=== PATIENT | male | born 1975 | race Two or more races ===

== ENCOUNTER 2025-01-06 01:24 | Emergency (ER) | payer OTHER ==
[~2025-01-06] VITALS: Ht 170.2 cm; Wt 110.9 kg
[2025-01-06] MEDS: SODIUM CHLORIDE 0.9% 1,000 ML IV ONE ×3 (02:15→05:49)
--- NOTE | 2025-01-06 02:15 | ED.PDOC ---
History of Present Illness HPI Comments 49-year-old male came to ER via EMS for alcohol intoxication. Patient was at a green party wherein he had too much to alcohol to drink. Noted to be intoxicated with episodes of nausea and vomiting. Blood sugar was 434. He does have history of diabetes but he is not taking any medications for it. Chief Complaint: ETOH Time Seen by MD: 02:13 Reviewed Notes: Apartment Maintenance Worker Notes Allergies: Coded Allergies: NO KNOWN ALLERGIES (Unverified , 01/06/25) Information Source: Patient, Emergency Med Personnel Mode of Arrival: EMS Severity: Moderate Timing: Hours Duration: Since onset Review of Systems REVIEW OF SYSTEMS: No fever, no chills, or fatigue (+) intoxicated with alcohol HEENT: No sore throat, no earache, no congestion, no neck pain. Cardiac: No chest pain. No palpitations. Lungs: No shortness of breath, no cough. GI: (+) nausea, (+) vomiting, no diarrhea, no constipation, no abdominal pain : No dysuria, frequency, or urgency. No hematuria. Musculoskeletal: No joint pain , no joint swelling, no extremity edema. Skin: No rash, no itching. Neuro: No headache, no dizziness, no weakness Vital Signs Vital Signs Date Time Temp Pulse Resp B/P (MAP) Pulse Ox O2 Delivery O2 Flow Rate FiO2 01/06/25 04:50 97.8 93 16 120/81 (94) 93 97.8 Physical Exam General: Patient is sleeping however easily aroused. Vomitus noted on his shirt and pants. HEENT: The head is normocephalic and atraumatic. Conjunctivae are clear without exudates or hemorrhage. Sclera is non-icteric. Neck: Normal range of motion. No JVD. Cardiac: Regular rate Respiratory: No signs of respiratory distress. No Stridor. Extremities: Upper and lower extremities are atraumatic in appearance without deformity. Neurological: The patient is awake, alert and oriented to person, place, he appears intoxicated. There is no facial asymmetry. Past Medical History PAST MEDICAL HISTORY: DM Surgical History: Denies all surgeries Family History Family History: Reviewed,noncontributory to illness Social History Smoker: Non-Smoker Alcohol: Occasionally Drugs: Denies Drug Use Lives In: Home Was a procedure done? Was a procedure done?: No Differential Dx Considerations may include: Alcohol intoxication, hyperglycemia, medication noncompliance, diabetic ketoacidosis X-Ray, Labs, Meds, VS Vital Signs Date Time Temp Pulse Resp B/P (MAP) Pulse Ox O2 Delivery O2 Flow Rate FiO2 01/06/25 04:50 97.8 93 16 120/81 (94) 93 97.8 01/06/25 01:29 98.2 89 18 128/85 (99) 96 Lab Test 01/06/25 04:57 01/06/25 04:48 01/06/25 02:50 01/06/25 02:42 Range/Units Lactic Acid Level Pending 6.0 *H 0.4-2.0 mmol/L POC Glucose 321 H 70-106 mg/dl Urine Color Light-yellow Yellow Urine Clarity Clear Clear Urine pH 5.0 5.0-9.0 Urine Specific Schulter 1.028 1.001-1.035 Urine Protein Negative Negative Urine Ketones 1+ H Negative Urine Blood Negative Negative /uL Urine Nitrite Negative Negative Urine Bilirubin Negative Negative Urine Urobilinogen Normal Negative mg/dL Urine Leukocyte Esterase Negative Negative /uL Urine RBC <1 0 - 3 /hpf Urine Microscopic WBC 0-3 /HPF Urine Squamous Epithelial Cells Few <5 /hpf Urine Bacteria None seen None Seen /hpf Urine Glucose 4+ H Normal mg/dL Urine Opiates Screen Neg NEGATIVE Urine Fentanyl Screen Neg NEGATIVE Urine Barbiturates Screen Neg NEGATIVE Urine Phencyclidine Screen Neg NEGATIVE Urine Amphetamines Screen Neg NEGATIVE Urine Benzodiazepines Screen Neg NEGATIVE Urine Cocaine Screen Neg NEGATIVE Urine Cannabinoids Screen Neg NEGATIVE White Blood Count 10.9 H 4.4-10.8 10^3/uL Red Blood Count 5.11 4.5-5.90 10^6/uL Hemoglobin 16.2 13.5-17.5 g/dL Hematocrit 47.3 41.0-53.0 % Mean Corpuscular Volume 92.6 80.0-100.0 fL Mean Corpuscular Hemoglobin 31.8 28.0-32.0 pg Mean Corpuscular Hemoglobin Concent 34.3 32.0-36.0 g/dL Red Cell Distribution Width 13.5 11.8-14.3 % Platelet Count 259 140-450 10^3/uL Mean Platelet Volume 7.8 6.9-10.8 fL Neutrophils (%) (Auto) 37.0-80.0 % Lymphocytes (%) (Auto) 10.0-50.0 % Monocytes (%) (Auto) 0.0-12.0 % Basophils (%) (Auto) 0.0-2.0 % Neutrophils # (Auto) 1.6-8.6 10 ^3/uL Lymphocytes # (Auto) 0.4-5.4 10 ^3/uL Monocytes # (Auto) 0-1.3 10 ^3/uL Differential Total Cells Counted 100.0 100 Neutrophils % (Manual) 64 37.0-80.0 Band Neutrophils % (Manual) 10 Lymphocytes % (Manual) 22 10.0-50.0 Monocytes % (Manual) 4 0-12 Eosinophils % (Manual) 0 0-7 Basophils % (Manual) 0 0.0-2.0 Metamyelocytes % (manual) 0 Myelocytes % (Manual) 0 Promyelocytes % (Manual) 0 Blast Cells % (Manual) 0 Reactive Lymphocytes 0 Platelet Estimate Adequate Sodium Level 136 136-145 mmol/L Potassium Level 3.6 3.5-5.1 mmol/L Chloride Level 97 L 98-107 mmol/L Carbon Dioxide Level 18 L 20-31 mmol/L Anion Gap 21 H 5-15 Blood Urea Nitrogen 11 9-23 mg/dL Creatinine 1.07 0.700-1.30 mg/dL Glomerular Filtration Rate Calc 86 >90 mL/min BUN/Creatinine Ratio 10.3 10.0-20.0 Serum Glucose 414 *H 74-106 mg/dL Calcium Level 10.3 8.7-10.4 mg/dL Magnesium Level 2.3 1.6-2.6 mg/dL Total Bilirubin 0.2 0.2-1.0 mg/dL Aspartate Amino Transferase (AST) 16 13-40 U/L Alanine Aminotransferase (ALT) 19 7-40 U/L Alkaline Phosphatase 112 46-116 U/L Total Protein 8.1 5.7-8.2 g/dL Albumin 5.3 H 3.2-4.8 g/dL Beta-Hydroxybutyric Acid 0.533 H < 0.4 mmol/L Plasma/Serum Blood Alcohol 137.7 H <10 mg/dL Test 01/06/25 02:15 Range/Units Blood Gas Specimen Type Arterial Blood Gas Sample Site Right radial Blood Gas Patient Temperature 37.0 Arterial Blood Date Drawn [id number] Arterial Blood pH 7.374 7.350-7.450 Arterial Blood Partial Pressure CO2 28.1 L 35.0-48.0 mmHg Arterial Blood Partial Pressure O2 86.1 83.0-108.0 mmHg Arterial Blood HCO3 16.0 L 21.0-28.0 mmol/L Arterial Blood Oxygen Saturation 95.3 94.0-98.0 % Arterial Blood Base Excess -7.4 L -2.0-3.0 mmol/L Arterial Blood Oxyhemoglobin 93.9 L 94.0-98.0 % Arterial Blood Carboxyhemoglobin 1.0 0.5-1.5 % Arterial Blood Methemoglobin 0.5 0.0-1.5 % Irving Test Yes Blood Gas Total Hemoglobin 16.00 13.5-17.5 g/dL Blood Gas Modality Room air FiO2 % 21.0 Current Medications Medications (Trade) Dose Ordered Sig/Matthew Route Start Time Stop Time Status Last Admin Sodium Chloride 1,000 ml @ 1,000 mls/hr Q1H ONCE IV 01/06/25 02:15 01/06/25 03:14 DC 01/06/25 02:15 Sodium Chloride 1,000 ml @ 1,000 mls/hr Q1H ONCE IV 01/06/25 04:15 01/06/25 05:14 DC 01/06/25 04:12 Ondansetron HCl (Zofran) 4 mg ONCE ONCE IV 01/06/25 04:15 01/06/25 04:16 DC 01/06/25 04:14 Time of 1ST Reevaluation: 02:07 Reevaluation 1ST: Unchanged Patient Education/Counseling: Diagnosis, Treatment, Other (Need for admission) Family Education/Counseling: No Family Present Departure 1 Departure Time of Disposition: 02:39 Impression: Primary Impression: Uncontrolled diabetes mellitus Additional Impressions: Alcohol intoxication DKA (diabetic ketoacidosis) Disposition: ADMITTED INPATIENT Condition: Stable Comments 49-year-old male who presenting with alcohol intoxication. Blood glucose was elevated. He was found to be in DKA. IV fluids and insulin initiated in the emergency department. Patient admitted for further treatment, evaluation and monitoring. Extensive evaluation was performed in attempt to identify or rule out: (See differential diagnosis section) The following tests were ordered, and results were reviewed by me: (See diag nostic results section) The following test were independently interpreted by me: N/A I reviewed and agreed with the following test results read by other providers: N/A I reviewed the following notes from the pt's past medical encounters: (None available at this time) Additional information was gathered from interviewing the following independent historians: N/A Discussion of management or test interpretation with external physician/other qualified health care provider: N/A Addressed one or more chronic illnesses with severe exacerbation, progression, or side effects of treatment: Diabetes, an acute or chronic illness that poses a threat to life or bodily function: DKA Decision regarding hospitalization or escalation of hospital level of care: Risk and benefits of admission for further treatment of patient's condition was considered. Due to patient's current clinical condition, high risk of decline and poor outcome if discharged and need for further inpatient management and monitoring, patient will be admitted to the hospital. Drug therapy requiring intensive monitoring for toxicity: IV insulin Parenteral controlled substances: N/A Decision regarding elective major surgery with identified patient or procedure risk factors: N/A Decision regarding emergency major surgery: N/A Decision not to resuscitate or to de-escalate care because of poor prognosis: N/A Diagnosis or treatment significantly limited by social determinants of health: N/A Critical Care Note Critical Care Time?: Yes (35 min-critical care time only) Critical care comment: DKA Due to a high probability of clinically significant, life threatening deterioration, the patient required my highest level of preparedness to intervene emergently and I personally spent this critical care time directly and personally managing the patient. This critical care time included obtaining a history; examining the patient; pulse oximetry; ordering and review of studies; arranging urgent treatment with development of a management plan; evaluation of patient's response to treatment; frequent reassessment; and, discussions with other providers. This critical care time was performed to assess and manage the high probability of imminent, life-threatening deterioration that could result in multi-organ failure. It was exclusive of separately billable procedures and treating other p atients and teaching time. Please see my other sections and the rest of the note for further information on patient assessment and treatment. Stability Stability form required: No Heart Score Heart Score: Heart Score Response (Comments) Value History N/A 0 EKG N/A 0 Age N/A 0 Risk Factors N/A 0 Troponin N/A 0 Total 0 I personally scribed for JOHNNIE KING MD ([email or web address]) on 01/06/25 at 02:15. Electronically submitted by Jerome Hammer ([facility]). JOHNNIE KING MD Jan 06, 2025 02:15
[2025-01-06 02:25] LABS: Base Excess -7.4 mmol/L (-2.0-3.0)
[2025-01-06 03:03] LABS: Urine Bacteria None Seen /hpf (None Seen)
[2025-01-06 03:45] LABS: Hematocrit 47.3 % (41.0-53.0); Hemoglobin 16.2 g/dL (13.5-17.5); Mean Corpuscular Hemoglobin 31.8 pg (28.0-32.0); Mean Corpuscular Hgb Conc. 34.3 g/dL (32.0-36.0); Mean Corpuscular Volume 92.6 fL (80.0-100.0); Platelet Count (auto) 259 10^3/uL (140-450); Red Blood Cells 5.11 10^6/uL (4.5-5.90); Red Cell Distribution Width 13.5 % (11.8-14.3); White Blood Cell 10.9 10^3/uL (4.4-10.8)
[2025-01-06 03:52] LABS: Basophils % (manual) 0 (0.0-2.0); Blast Cells 0; Eosinophils % (manual) 0 (0-7); Metamyelocytes % 0; Myelocytes % 0; Promyelocytes % 0; Reactive Lymphocytes 0
[2025-01-06 03:53] LABS: Urine Blood Negative /uL (Negative); Urine Clarity Clear (Clear); Urine Color Light-Yellow (Yellow); Urine Protein, UAD Negative (Negative); Urine Specific Gravity 1.028 (1.001-1.035); Urine Squamous Epithelial Cell FEW /hpf (<5); Urine Urobilinogen Normal (Negative)
[2025-01-06 04:00] LABS: Amphetamine Screen, Urine Neg (NEGATIVE); Barbiturate Scree,Urine Neg (NEGATIVE); Opiate Scree,Urine Neg (NEGATIVE); Phencyclidine Screen, Urine Neg (NEGATIVE)
[2025-01-06 04:01] LABS: Benzodiazephine Screen, Urine Neg (NEGATIVE); Cannabinoid Screen, Urine Neg (NEGATIVE); Cocaine Screen, Urine Neg (NEGATIVE)
[2025-01-06] MEDS: ONDANSETRON HCL 4 MG/2 ML VIAL IV ONE (04:14)
[2025-01-06 04:24] LABS: Alanine Aminotransferase 19 U/L (7-40); Alkaline Phosphatase 112 U/L (46-116); Anion Gap 21 (5-15); Aspartate Aminotransferase 16 U/L (13-40); BUN/Creatinine Ratio 10.3 (10.0-20.0); Blood Urea Nitrogen 11 mg/dL (9-23); Calcium 10.3 mg/dL (8.7-10.4); Magnesium 2.3 mg/dL (1.6-2.6); Potassium 3.6 mmol/L (3.5-5.1)
[2025-01-06 04:25] LABS: Total Protein 8.1 g/dL (5.7-8.2)
[2025-01-06 04:32] LABS: Albumin 5.3 g/dL (3.2-4.8); Bilirubin, Total 0.2 mg/dL (0.2-1.0); Carbon Dioxide 18 mmol/L (20-31); Chloride 97 mmol/L (98-107); Glucose 414 mg/dL (74-106); Sodium 136 mmol/L (136-145)
[2025-01-06 04:42] LABS: Blood Alcohol 137.7 mg/dL (<10)
[2025-01-06 04:50] VITALS: TEMP 97.8
[2025-01-06 05:12] LABS: Band Neutrophils % (manual) 10; Lymphocytes % (manual) 22 (10.0-50.0); Monocytes % (manual) 4 (0-12); Platelet Estimate Adequate
[2025-01-06 05:31] VITALS: PULSE 99; RESP 19; O2SAT 97
[2025-01-06] MEDS: InsuLIN REG 1unit/0.01ml Soln (100units/ml) IV ONE (05:49)
[2025-01-06] MEDS: POTASSIUM CHL 20MEQ/100ML 100 ML IV ONE (05:49)
[2025-01-06 07:55] VITALS: PULSE 97; RESP 16; O2SAT 95
[2025-01-06 08:00] VITALS: BP 138/81; PULSE 94; RESP 17; O2SAT 93
== END 2025-01-06 08:45 | disposition left against medical advice (07) ==
LOC: ER 01:24 → EDBD 01:24 → ER 08:45
DX: F10.129 Alcohol abuse with intoxication, unspecified (principal); E11.10 Type 2 diabetes mellitus with ketoacidosis without coma; E11.65 Type 2 diabetes mellitus with hyperglycemia; Y90.6 Blood alcohol level of 120-199 mg/100 ml
CPT/HCPCS: 36415; 36600; 80053; 80307; 80320; 81001; 82010; 82805; 82962; 83605; 83735; 85007; 85027; 96361; 96374; 96375; 99285; J1815; J2405; J3480; J7030